=== PATIENT | female | born 1945 | race Caucasian/White ===

== ENCOUNTER 2022-01-19 08:16 | Day surgery (SDC) | payer MEDICARE, OTHER, SELFPAY ==
[2022-01-19] VITALS (7 sets, daily range): BP systolic 83–152; BP diastolic 42–86; PULSE 71–80; RESP 10–18; TEMP 36.1–36.7; O2SAT 95–98; BMI 29.7
--- NOTE | 2022-01-19 | PATH_ITS ---
[facility] Accession Number: [id number] . 01 Material submitted: . PART A: stomach - ANTRUM BODY PART B: colon - DESCENDING COLON POLYP . 01 Diagnosis: A. Stomach, Antrum Body, Biopsy: Antral mucosa with mild chronic gastritis. Negative for Helicobacter by immunohistochemistry. Negative for intestinal metaplasia. Negative for dysplasia and malignancy. . B. Descending Colon, Polyp, Biopsy: Tubular adenoma. MRV 01/25/2022 1223 Local . 01 Electronically signed: . Joyce Lara MD, Pathologist NPI- [id number] . 01 Gross description: . Part A: ANTRUM BODY: Received in formalin is 1 fragment(s) of ojeda, soft tissue measuring 0.5 x 0.2 x 0.1 cm submitted entirely in 1 cassette(s) Part B: DESCENDING COLON POLYP: Received in formalin are 2 fragment(s) of ojeda, soft tissue measuring 0.3 x 0.1 x 0.1 cm to 0.2 x 0.2 x 0.2 cm submitted entirely in 1 cassette(s) /CPE 01/20/2022 0704 Local . 01 Microscopic: . A. An immunohistochemical stain was performed to evaluate for Helicobacter organisms and is negative. The control stain showed appropriate reactivity. . * This test was developed and its performance characteristics determined by [employer]. It has not been cleared or approved by the U.S. Food and Drug Administration. The FDA has determined that such clearance or approval is not necessary. This test is used for clinical purposes. It should not be regarded as investigational or for research. . 01 Pathologist provided ICD-10: D12.4 . 01 CPT . 789778, 409563, [id number] Specimen Comment: A courtesy copy of this report has been sent to [phone], [phone] Specimen Comment: [id number], Performed at: 01 [facility] [address] [place] [address], [place], [place] [id number] MD Julian Conn MD Phone: [phone]
[2022-01-19] MEDS: SODIUM CHLORIDE 0.9% 1,000 ML 70 ML IV (08:45)
--- NOTE | 2022-01-19 08:59 | PM.HP.1 ---
History of Present Illness History of Present Illness Date Patient Seen: 01/19/22 Time Patient Seen: 08:45 Chief complaint: DX COLONOSCOPY & EGD Narrative: Patient is a very pleasant 76-year-old female who presented for EGD and colonoscopy. She was last seen in the office on 11/25/2021. She was describing epigastric pain that radiated to her back. This has been persistent since that time. She thinks it may be a little bit better after starting a PPI. Prior to that she had been experiencing esophageal dysphagia however those symptoms have resolved. She is due for screening colonoscopy. Her last colonoscopy was 10 years ago. Her mom had colon cancer in her 90s. Patient History Medical History (Updated 01/19/22 @ 09:00 by Tiff Garcia DO) CVA (cerebral vascular accident) Family & Social History Social History: household members spouse Tobacco & Substance use: Smoking Status Former smoker alcohol intake current alcohol intake frequency 3 or more drinks per day Substance Use Type does not use Meds Home Medications and Allergies Home Medications Medication Instructions Recorded Confirmed Type Detrol LA 2 mg PO DAILY 01/19/22 01/19/22 History Glucosamine 1500 Complex 1,500 mg PO BID 01/19/22 01/19/22 History omeprazole 20 mg capsule,delayed 20 mg PO DAILY 01/19/22 01/19/22 History release Allergies Allergy/AdvReac Type Severity Reaction Status Date / Time Sulfa (Sulfonamide Allergy Verified 01/19/22 08:13 Antibiotics) adhesive tape AdvReac Verified 01/19/22 08:13 Review of Systems Review of Systems ROS: Yes All systems reviewed with the patient and are negative except as otherwise documented Exam Vital Signs (past 8 hours): - 01/19/22 08:31 Temperature 98.1 F Pulse Rate 79 Respiratory Rate 18 Blood Pressure 152/76 H Pulse Oximetry 97 Oxygen Delivery Method Room Air Const General: cooperative, healthy appearing, comfortable, well developed, well groomed and No in distress HENMT Head: normocephalic and atraumatic Resp Effort & Inspection: normal respiratory effort and able to speak in complete sentences Auscultation: clear to auscultation bilaterally Cardio Rate: regular rate Rhythm: regular rhythm GI Palpation: soft Extrem General: no clubbing, cyanosis or edema Assessment & Plan Assessment & Plan narrative: 1. Epigastric pain 2. Screening colonoscopy EGD and colonoscopy today, further recommendations follow Time Spent With Patient Critical Care time: I spent a total of [] minutes of critical care time on this patient's care today; this time is exclusive of procedural time.
--- NOTE | 2022-01-19 09:42 | PM.OP.EC ---
Operative Date/Time/Diagnoses Date of procedure: 01/19/22 Time of procedure: 09:04 Procedure Notes Procedure in detail: Surgeon: Tiff Garcia DO Procedure: Esophagogastroduodenoscopy with biopsy and colonoscopy with polypectomy Preoperative diagnosis: 1. Epigastric pain 2. Screening colonoscopy Postoperative diagnosis: 1. Gastritis 2. Large hiatal hernia 3. 3 mm descending colon polyp removed with Jumbo forceps 4. Tortuous colon 5. Grade 1 internal hemorrhoids Medications: Monitored anesthesia care Preanesthesia Assessment An H and P was performed/updated and the Px?s ASA class is 3. The procedure was discussed in detail with the patient. The potential risks and complications including infection, bleeding, missed lesions, perforation, need for surgery in case of perforation, prolonged hospital stay, and were explained. A brief question and answer period was allotted and once all questions were answered, informed consent was obtained. The patient remained on her full-dose aspirin. The patient was brought back to the procedure room and placed on standard monitoring. The patient?s vital signs were monitored continuously throughout the entire procedure. Prior to starting, a timeout was performed to confirm the patient?s identity, allergies, medications, and procedure. Procedure in detail The patient was placed in left lateral decubitus position and a bite block was inserted. The tip of the upper endoscope was placed into the mouth and advanced without difficulty under direct visualization into the esophagus. Esophagus: No gross lesions Stomach: Large hiatal hernia, gastritis in the antrum and body biopsy to out H pylori Duodenum: Normal appearing duodenum, ampulla well visualized After the upper endoscopy, preparations were made for the colonoscopy. Once adequate sedation was obtained a SADIA was performed. The digital rectal examination did not reveal any palpable lesions. The tip of the colonoscope was placed in the anal canal and advanced with difficulty due to a tortuous colon. Abdominal pressure was applied. Scope withdrawn re-insertion, scope torsion were applied. We were able to pass all the way to the cecum which was identified by the appendiceal orifice and the ileocecal valve. 3 mm polyp identified in the descending colon removed with Jumbo forceps. Grade 1 internal hemorrhoids were noted on retroflexion. Exam was otherwise unremarkable. The patient tolerated the procedure well and will be brought back to the recovery area to be discharged once criteria are met. The prep was judged to be good/excellent and adequate to identify polyps less than 5 mm. The withdrawal time was 8min. Complications There were no complications and estimated blood loss was minimal. Recommendations Resume previous diet Continue outpatient medications Follow-up pathology results Repeat colonoscopy after pathology results are reviewed Follow-up at our office if persistent symptoms An emergency contact number was given to the patient for any complications related to the procedure
== END 2022-01-19 10:15 | disposition home or self-care (01) ==
PROVIDERS: PCP Internal Medicine; Referring Provider Internal Medicine; Visit Provider Student in an Organized Health Care Education/Training Program
PROC: 0DJD8ZZ Inspection of Lower Intestinal Tract, Via Natural or Artificial Opening Endoscopic (ICD-10-PCS; CPT 45378; principal; 2022-01-19 09:00)
PROC: 0DJ08ZZ Inspection of Upper Intestinal Tract, Via Natural or Artificial Opening Endoscopic (ICD-10-PCS; CPT 43235; 2022-01-19 09:00)
DX: Z12.11 Encounter for screening for malignant neoplasm of colon (principal); R10.13 Epigastric pain; K29.70 Gastritis, unspecified, without bleeding; K44.9 Diaphragmatic hernia without obstruction or gangrene; K64.0 First degree hemorrhoids; K29.50 Unspecified chronic gastritis without bleeding; D12.4 Benign neoplasm of descending colon
CPT/HCPCS: 45380; 43239; J2704

== ENCOUNTER → 2023-12-21 12:15 | Outpatient (CLI) | payer MEDICARE, OTHER, SELFPAY ==
--- NOTE | 2023-12-21 12:19 | DI.CT.S_ITS ---
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 For radiation dose reduction, the following was used: automated exposure control, adjustment of mA and/or kV according to patient size. COMPARISON: None. FINDINGS: Image quality: Excellent. Orbits: Right intra-ocular lens replacement in place. Otherwise, bilateral ocular globes are in good position. The right anterior sclera is 1.3 cm from the inter zygomatic line, and the left anterior sclera is 1.1 cm from the zygomatic aligned. Both optic nerves and extraocular muscles are unremarkable. Retro bulbar fat normal. Both lacrimal glands normal Intracranial: The pituitary gland is normal, without sellar or suprasellar masses. Visualized cerebral hemispheres, brainstem, and spinal cord appear normal. Bones and sinuses: Visualized calvarium and facial bones appear intact. Visualized sinuses and mastoids are clear. IMPRESSION: The left ocular globe is 2 mm internally positioned relative to the right. Retro bulbar soft tissues unremarkable bilaterally Approved by: Moe Norris M.D. on 12/21/2023 at 19:59
[2023-12-21 12:46] LABS: Estimated Glomerular Filt Rate > 60 mL/min (>60)
== END ==
PROVIDERS: Radiology Diagnostic Radiology; PCP Internal Medicine; Referring Provider Ophthalmology; Visit Provider Ophthalmology
DX: H05.41 Enophthalmos due to atrophy of orbital tissue (principal); Z96.1 Presence of intraocular lens
CPT/HCPCS: 36415; 70481; 82565; Q9967